=== PATIENT | male | born 2000 | race Two or more races ===

== ENCOUNTER 2024-06-11 14:17 | Outpatient (REF) | payer OTHER, SELFPAY ==
--- OUTSIDE RECORDS SUMMARY | 2024-06-11 17:13 | XMS_ITS | Clinical Summary ---
Author Organization [email or web address] Address [address] [facility] 7[address] [place] [address] Care Team Providers Care Supervisor Order Takers Name Role Phone Marta Lal MD Primary Care Provider [phone] Allergies No known active allergies Medications loratadine (Claritin) 10 MG tablet TAKE 1 TABLET BY MOUTH EVERY DAY NEEDED FOR ALLERGY SYMPTOMS 2 Active albuterol 108 (90 Base) MCG/ACT inhaler INHALE 2 PUFFS EVERY 4 HOURS NEEDED FOR COUGH, WHEEZE OR SHORTNESS OF BREATH 2 Active Salicylic Acid 1 % liquidIndication s:Acne vulgaris Apply 1 application topically in the morning. 192 mL 2 3 Active Blood Pressure kitIndications:E levated BP without diagnosis of hypertension To check the BP once a day 1 kit 5 Active Active Problems Problem Noted Date Diagnosed Date Hypertriglyceridemia 04/25/2022 Assessment & Plan (04/25/2022 10:08 PM EST): Patient w/ abnormal lipid in previous labs, will repeat testing fasting. Cont lifestyle modifications. Acne vulgaris 04/25/2022 Assessment & Plan (06/14/2022 11:25 AM EDT): Will send afternoon retinoin to use along with ceramide base moisturizer. Salicylic acid-clindamycin in the AM. On recall for [facility] Assessment & Plan (04/25/2022 10:08 PM EST): Reports BZO 5% and retinoid not helpful, declined refill. At this moment will want to be seen by [facility], appt setup . COVID-19 02/10/2022 Overview (02/10/2022): Pt states that he tested positive for COVID19 with at home test. Pt was tested for COVID19 in [facility]. RN verified name and , education provided based on most up-to-date CDC guidelines. Patient expresses understanding and has no current questions or concerns at this time. Asthma 10/07/2014 Allergic rhinitis 10/07/2014 Encounters Date Type Department Care Team Description 06/11/2024 1:20 PM EDT Office Visit [facility] [address] [place], [place] [phone] Nova Ferrari MD Elevated BP without diagnosis of hypertension (Primary Dx) 06/11/2024 Travel 06/03/2024 Telephone [facility] [address] [place] [address] Marta Lal MD ER Follow-up from Last 3 Months Immunizations Name Administration Dates Next Due DTaP, 5 pertussis antigens 10/31/2005,,05/10/2002,03/25,2001 HPV 9-Valent 02/16/2015,10/14/2014,04/24/2013 Hep A, ped/adol, 2 dose 03/11/2009,02/27/2008 Hep B, Adolescent or Pediatric 2,11/02/2002,03/25/2002,12/20 HiB, unspecified 11/02/2002,2001 Hib (PRP-T) 03/25/2002 IPV 10/31/2005, 3,03/25/2002,12/20 Influenza injectable quadriv alent preservative free 04/08/2019,01/15/2018,01/10/2017,02/16,07/01/2011,01/12/2011 Influenza, injectable, quadr ivalent, preservative free, pediatric 12/22/2007 MMR 10/31/2005,11/02/2002 Meningococcal MCV4P [id number]-135 04/08/2019,04/20/20 12 Pneumococcal Conjugate PCV 13 11/02/2002 ,05/10/2002,03/25/2002,12/20 Tdap 01/15/2018,07/01/2011 Varicella 04/26/2006,03/11/2003 Social History Tobacco Use Types Packs/Day Years Used Date Smoking Tobacco: Never Passive Smoke Exposure: Never Smokeless Tobacco: Never Tobacco Cessation:Counseling Given: Not Answered Alcohol Use Standard Drinks/Week Comments Never 0 (1 standard drink = 0.6 oz pur e alcohol) Sex and Gender Information Value Date Recorded Sex Assigned at Male 01/10/2022 10:27 AM EDT Legal Sex Male 10:27 AM EDT Gender Identity Male 01/10/2022 10:27 AM EDT Sexual Orientation Straight 01/10/2022 10 :27 AM EDT Last Filed Vital Signs Vital Sign Reading Time Taken Comments Blood Pressure 152/78 06/11/2024 1:22 PM EDT Pulse 68 06/11/2024 1:22 PM EDT Temperature 36.8 ??C (98.2 ??F) 06/11/2024 1:22 PM ED T Respiratory Rate 20 06/11/2024 1:22 PM EDT Oxygen Saturation 98% 06/11/2024 1:22 PM EDT Inhaled Oxygen Concentration - - Weight 64.4 kg (142 lb) 06/11/2024 1:22 PM EDT Height 172 cm (5' 7.72 ) 06/11/2024 1:22 PM EDT Body Mass Index 21.77 06/11/2024 1:22 PM EDT Plan of Treatment Upcoming Encounters Date Type Department Care Team (Late st Contact Info) Description 07/12/2024 10:30 AM EDT Clinical Support [facility] & [facility] [address] [place] [address] Health Maintenance Due Date Last Done Comments Chlamydia and Gonorrhea Screening 2001 Depression Screening 2001 SDOH Screening 2001 Pneumococcal Vaccine: Pediatrics (0 to 5 Years) and At-Risk Patients (6 to 49) Years) (1 of 1 - PPSV23) 10/31/2007 11/02/2002, 05/10/2002, 03/25/2002, Additional history exists Alcohol/Substance Use Screening 2013 Family Planning (PISQ) 2016 Hepatitis C Screening 10/31/2019 COVID-19 Vaccine ( season) 2023 08/01/2020, 07/04/2020 Influenza Vaccine (#1) 2023 0, 01/15/2018, 01/10/2017, Additional history exists Tobacco Screening 06/11/2025 06/11/2024 DTaP/Tdap/Td Vaccines (7 - Td or Tdap) 01/16/2028 01/15/2018, 07/01/2011, 10/31/2005, Additional history exists Zoster Vaccines (1 of 2) 10/31/2051 RSV Patients and Patients Aged 60 years or older (1 - 1-dose 75+ series) 2076 HIB Vaccines Completed 11/02/2002, 03/13, 2001 IPV Vaccines Completed 10/31/2005, 04/14, 03/25/2002, Additional history exists Hepatitis A Vaccines Completed 03/11/2009, 02/27/20 08 Hepatitis B Vaccines Completed 07/01/2011, 11/02/2002, 03/25/2002, Additional history exists HPV Vaccines Completed 02/16/2015, 06/2014, 04/24/2013 Meningococcal Vaccine Completed 04/08/2019, 012 HIV Screening Completed 09/08/2021 RSV under 20 months Aged Out No longe r eligible based on patient's age to complete this topic Rotavirus Vaccines Aged Out No longer eligible based on patient's age to complete this topic Procedures Procedure Name Priority Date/Time Associated Diagnosis Comments HIV 1/2 ANTIGEN/ANTIBODY, FOURTH GENERATION W/RFL Routine 09/08/2021 10:36 AM EDT from Last 3 Months or Most Recently Relevant to Health Maintenance Results * HIV 1/2 ANTIGEN/ANTIBODY,FOURTH GENERATION W/RFL (09/08/2021 10:36 AM EDT) Pathologist [facility] HIV-1/2 ANTIGEN AND ANTIBODIES, 4TH GENERATION W/ REFLEX NON-REACT ALEXANDRA NON-REACT ALEXANDRA [facility] Comment: HIV-1 antigen and HIV-1/HIV-2 antibodies were not detected. There is no laboratory evidence of HIV infection. ?? PLEASE NOTE: This information has been disclosed to you from records whose confidentiality may be protected by state law. ??If your state requires such protection, then the state law prohibits you from making any further disclosure of the information without the specific written consent of the person to whom it pertains, or as otherwise permitted by law. A general authorization for the release of medical or other information is NOT sufficient for this purpose. ? For additional information please refer to http://education.StraighterLine/faq/HIN703 (This link is being provided for informational/ educational purposes only.) ? The performance of this assay has not been clinically validated in patients less than 2 years old. ?? 09/08/2021 10:3 6 AM EDT us Marta Lal MD LAB BLOOD ORDERABLES Final Re sult [facility] [address] from Last 3 Months or Most Recently Relevant to Health [place] [id number] [facility] [place] [id number] [place] [address] [place] [id number] Care Teams Supervisor Order Takers Relationship Specialty Start Date End Date Marta Lal MD [address] [place] [id number] PCP - General Family Medicine 04/25/22
--- OUTSIDE RECORDS SUMMARY | 2024-06-11 17:13 | XMS_ITS | Encounter Summary ---
Author Organization [employer] Address [address] [place] [address] Care Team Providers Care Wound Care Coordinator Name Role Phone Marta Lal MD Primary Care Provider [phone] Reason for Visit * Reason Onset Date Comments ER Follow-up 06/03/2024 Encounter Details Date Type Department Care Team ([facility] st Contact Info) Description 06/03/2024 Telephone [facility] MEDICINE [address] [place], [place] [phone] Marta Lal MD [address] [place] [id number] ER Follow-up Social History Tobacco Use Types Packs/Day Years Used Date Smoking Tobacco: Never Passive Smoke Exposure: Never Smokeless Tobacco: Never Alcohol Use Standard Drinks/Week Comments Never 0 (1 standard drink = 0.6 oz pur e alcohol) Sex and Gender Information Value Date Recorded Sex Assigned at Male 01/10/2022 10:27 AM EDT Legal Sex Male 10:27 AM EDT Gender Identity Male 01/10/2022 10:27 AM EDT Sexual Orientation Straight 01/10/2022 10 :27 AM EDT documented as of this encounter Miscellaneous Notes * Telephone Encounter - Shannon Younger RN - 06/10/2024 4:57 PM EDT called pt to triage, spoke to pt. 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 pt had mild high blood pressure as well as some blood in his urine. pt denies any headaches, blurred vision, numbness, sob, visible blood in urine, urinary symptoms, or fevers. given appt tomorrow for recheck in [facility] at 1:20 for exam. advised home care: rest, lots of fluids, monitor symptoms, and call backas needed. pt will bring any information from the to the appt. pt understands and agrees with plan. insurance verified. Protocol Used: No Protocol Available (Adult) Protocol-Based Disposition: See in Office or Video Visit within 3 Days Video visit offer not recorded Positive Triage Question: * Nursing judgment * All higher-acuity triage questions were negative Care Advice Discussed: * Reasons To Call Back - New symptoms develop - You become worse * Telephone Encounter - Dhaval Masterson - 06/10/2024 3:42 PM EDT Tc from pt returning call Please return call [phone] * Telephone Encounter - Ivone Elizabeth RN - 06/10/2024 1:40 PM EDT TC to pt mobile phone x2 and his work phone x1. The call would not go through on the mobile phone. No answer on the work phone, voicemail left to call the clinic back. * Telephone Encounter - Mya Blas - 06/10/2024 1:14 PM EDT Tc from pt returning call. Pt is requesting a follow up appointment. Pt stated Urgent Care found blood in the urine and pt is requesting follow up/further testing. 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 Said his BP was elevated that day, but has not been elevated since. Patient denies headache, blurred vision, chest pain, difficulty breathing. * Telephone Encounter - Ele Marty Ahmadi - 06/03/2024 9:05 AM EDT Patient calling to report ED visit on : Date: 05/31 Hospital: [facility] Seen for: High Blood Pressure Symptomatic No *if yes message should go to Triage Patient advised will forward to team nurse for follow up [phone] documented in this encounter Plan of Treatment Upcoming Encounters Date Type Department Care Team (Late st Contact Info) Description 07/12/2024 10:30 AM EDT Clinical Support [facility] & PEDS [address] [place] [address] documented as of this encounter Visit Diagnoses Not on filedocumented in this encounter Care Teams Wound Care Coordinator Relationship Specialty Start Date End Date Marta Lal MD [address] [place] [phone] PCP - General Family Medicine 04/25/22 documented as of this encounter
--- OUTSIDE RECORDS SUMMARY | 2024-06-11 17:13 | XMS_ITS | Encounter Summary ---
Author Organization [employer] [facility] Address [address] [facility] 7[address] [place] [address] Care Team Providers Care Hatch Boss Name Role Phone Marta Lal MD Primary Care Provider [phone] Encounter Details Date Type Department Care Team (Latest Contact Info) Description 06/11/2024 Travel Social History Tobacco Use Types Packs/Day Years [...] AM EDT documented as of this encounter Plan of Treatment Upcoming Encounters Date Type Department Care Team (Late st Contact Info) Description 07/12/2024 10:30 AM EDT Clinical Support [facility] [address] [place] [address] documented as of this encounter Visit Diagnoses Not on filedocumented in this encounter Care Teams Hatch Boss Relationship Specialty Start Date End Date Marta Lal MD [address] [place] [id number] PCP - General Family Medicine 04/25/22 documented as of this encounter
--- OUTSIDE RECORDS SUMMARY | 2024-06-11 17:13 | XMS_ITS | Encounter Summary ---
Author Organization [employer] Address [address] [facility] 7t [place] [address] Care Team Providers Care Revenue Specialist Name Role Phone Marta Lal MD Primary Care Provider [phone] Encounter Details Date Type Department Care Team ([facility] st Contact Info) Description 06/11/2024 1:20 PM EDT Office Visit [facility]EDS [address] [place], [place] [phone] Nova Ferrari MD [address] [place] [address] Elevated BP without diagnosis of hypertension (Primary Dx) Social History Tobacco Use Types Packs/Day Years [...] AM EDT documented as of this encounter Last Filed Vital Signs Vital Sign Reading Time Taken Comments Blood Pressure 152/78 06/11/2024 1:22 PM EDT Pulse 68 06/11/2024 1:22 PM EDT Temperature 36.8 ??C (98.2 ??F) 06/11/2024 1:22 PM E DT Respiratory Rate 20 06/11/2024 1:22 PM EDT Oxygen Saturation 98% 06/11/2024 1:22 PM EDT Inhaled Oxygen Concentration - - Weight 64.4 kg (142 lb) 06/11/2024 1:22 PM EDT Height 172 cm (5' 7.72 ) 06/11/2024 1:22 PM EDT Body Mass Index 21.77 06/11/2024 1:22 PM EDT documented in this encounter Plan of Treatment Upcoming Encounters Date Type Department Care Team (Late st Contact Info) Description 07/12/2024 10:30 AM EDT Clinical Support [facility]S [address] [place] [address] Scheduled Orders Name Type Priority Associated Diagnoses Orde r Schedule Comprehensive Metabolic Panel Lab Routine Elevated BP without diagnosis of hypertension Expected: 06/11/2024 (Approximate), Expires: 06/11/2025 CBC auto differential Lab Routine Elevated BP without diagnosis of hypertension Expected: 06/11/2024 (Approximate), Expires: 06/11/2025 TSH W/Reflex to FT4 Lab Routine Elevated BP without diagnosis of hypertension Expected: 06/11/2024 (Approximate), Expires: 06/11/2025 documented as of this encounter Visit Diagnoses Diagnosis Elevated BP without diagnosis of hypertension- Primary documented in this encounter Care Teams Revenue Specialist Relationship Specialty Start Date End Date Marta Lal MD [address] [place] [address] PCP - General Family Medicine 04/25/22 documented as of this encounter
[2024-06-11 18:15] LABS: MANUAL DIFF FLAG NO
[2024-06-11 19:03] LABS: Basophils Percent Auto 0.6 % (0-2); Eosinophils Absolute Auto 0.2 X10*3/uL (0.0-0.4); Eosinophils Percent Auto 3.3 % (0-4); Hematocrit 48.4 % (42.0-52.0); Hemoglobin 16.2 g/dl (14.0-18.0); Imm Gran Abs Auto 0.02 X10*3/uL (0.00-0.03); Imm Gran Pct Auto 0.3 % (0.0-0.4); Lymphocytes Absolute Auto 2.2 X10*3/uL (1.2-4.9); Mean Corpuscular HGB Conc 33.5 g/dl (31.0-36.0); Mean Corpuscular Hemoglobin 28.1 pg (27.0-33.0); Mean Platelet Volume 11.5 fL (9.4-12.4); Monocytes Absolute Auto 0.6 X10*3/uL (0.1-1.2); Monocytes Percent Auto 8.6 % (2-11); Neutrophils Percent Auto 56.2 % (45-73); Platelet Count 264 X10*3/uL (160-400); Red Blood Count 5.76 X10*6/uL (4.60-5.80); Red Cell Distribution Width 12.3 % (11.0-16.0)
[2024-06-11 19:48] LABS: Alanine Aminotransferase 34 U/L (0-40); Albumin Level 4.6 g/dL (3.5-5.0); Alkaline Phosphatase 86 U/L (39-117); Anion Gap 12 (12-20); Aspartate Amino Transferase 35 U/L (5-37); Bilirubin Total 0.5 mg/dL (0.0-1.0); Blood Urea Nitrogen 18 mg/dL (9-16); Calcium 9.6 mg/dL (8.4-10.2); Carbon Dioxide 27 mmol/L (22-29); Chloride 106 mmol/L (96-108); Estimated Glomerular Filt Rate > 60; Glucose Random 79 mg/dL (60-115); Potassium 3.6 mmol/L (3.3-5.1); Sodium 141 mmol/L (135-145); Total Protein 7.8 g/dL (6.5-8.0)
[2024-06-11 20:13] LABS: TSH reflex Free T4 1.13 uIU/mL (0.32-4.0)
== END 2024-06-11 14:18 | disposition home or self-care (01) ==
LOC: HO.CHCLDS 14:17
PROVIDERS: Visit Provider Internal Medicine
DX: R03.0 Elevated blood-pressure reading, without diagnosis of hypertension (principal)
CPT/HCPCS: 36415; 80053; 84443; 85025